=== PATIENT | female | born 1930 | race Caucasian/White ===

== ENCOUNTER → 2018-11-13 | Outpatient (CLI) | payer OTHER ==
[~2018-11-13] MED LIST: GADOBUTROL 10 ML VIAL IVP ONE
== END ==
LOC: FIMAGING 09:16
PROVIDERS: ATTEND Internal Medicine Hematology & Oncology
DX: C34.82 Malignant neoplasm of overlapping sites of left bronchus and lung (principal); C78.2 Secondary malignant neoplasm of pleura; R90.82 White matter disease, unspecified; G31.9 Degenerative disease of nervous system, unspecified
CPT/HCPCS: 70553; A9585; 84481-90

== ENCOUNTER 2018-12-01 09:51 | Day surgery (SDC) | payer OTHER ==
[2018-12-01] MEDS ORDERED: ALTEPLASE 2 MG VIAL IVP PRN (10:18)
[2018-12-01] MEDS ORDERED: MIDAZOLAM 2 MG/2 ML VIAL IVP PRN (10:18)
[2018-12-01] MEDS ORDERED: PROTAMINE SULFATE 50 MG/5 ML VIAL IVP PRN (10:18)
[2018-12-01] MEDS ORDERED: GLUCAGON HCL 1 MG VIAL IVP PRN (10:18)
[2018-12-01] MEDS ORDERED: fentaNYL 100 MCG/2 ML INJ IVP PRN (10:18)
[2018-12-01] MEDS ORDERED: MEPERIDINE 25 MG/ML INJ IVP PRN (10:18)
[2018-12-01] MEDS ORDERED: HEPARIN 10,000 UNIT/10 ML MDV (1,000 UNIT/ML) IVP PRN (10:18)
[2018-12-01] MEDS ORDERED: NALOXONE HCL 0.4 MG/ML INJ IVP PRN (10:18)
[2018-12-01] MEDS ORDERED: FLUMAZENIL 0.5 MG/5 ML MDV IVP PRN (10:18)
[2018-12-01] MEDS ORDERED: ceFAZolin 2 GM/DEXTROSE 100 ML IV ONE (10:18)
[2018-12-01] MEDS ORDERED: NS 1,000 ML IV SCH (10:30)
[2018-12-01] MEDS ORDERED: LIDOCAINE 1% 5 ML SDV ONE (10:42)
--- NOTE | 2018-12-01 11:13 | PDPROPOC ---
Sedation Plan of Care Sedation Plan of Care: vital signs stable, mental status noted, patient educated of risks, benefits, alternatives, patient can tolerate sedation ASA Classification: ASA 3 Planned drugs: fentanyl, midazolam Mallampati Score: Class 2 Mallampati Reference Image: Patient passed 3-3-2 rule?: Yes
--- NOTE | 2018-12-01 11:13 | PDGENHP ---
History & Physical Chief Complaint: LT PLEURAL EFFUSION History of Present Illness: NON-SMALL CELL LUNG CANCER. RECURRENT LT PLEURAL EFFUSION. Pertinent Past, Social, Family History: NON SMOKER. TAPPED 1L PER WEEK X 3. VERY SUPPORTIVE LARGE FAMILY. Relevant Physical Exam: TIRED A LOT. Cardiorespiratory Assessment: MUCOUSY COUGH. DECREASED LT LUNG SOUNDS.
[2018-12-01 11:25] LABS: INR 0.94 (0.83-1.16); PROTIME(PATIENT) 12.2 SEC (12.0-15.0)
[2018-12-01] MEDS ORDERED: ONDANSETRON 4 MG/2 ML VIAL IVP PRN (12:20)
[2018-12-01] MEDS ORDERED: ACETAMINOPHEN 325 MG TAB PO PRN (12:20)
--- NOTE | 2018-12-01 12:21 | PDRADPN ---
Radiology Procedure Note Date of Procedure: 12/01/18 Radiologist: Charlotte Cespedes Anesthesia: IV Sedation Pre-op Diagnosis: non small cell lung cancer Post-op Diagnosis: same Indication: recurrent effusion Procedure: pleurx drain placement Finding(s): 1200cc removed Inf/Abcess present in the surg proc area at time of surgery?: No
[2018-12-01 13:03] VITALS: BP 142/76
== END 2018-12-01 13:20 | disposition home or self-care (01) ==
LOC: FIMAGING 09:51
PROVIDERS: ATTEND Radiology Diagnostic Radiology
PROC: BB13ZZZ Fluoroscopy of Left Lung (ICD-10-PCS; principal; 2018-12-01 12:32)
PROC: BB4BZZZ Ultrasonography of Pleura (ICD-10-PCS; principal; 2018-12-01 12:32)
PROC: 0W9B30Z Drainage of Left Pleural Cavity with Drainage Device, Percutaneous Approach (ICD-10-PCS; principal; 2018-12-01 12:32)
DX: C34.82 Malignant neoplasm of overlapping sites of left bronchus and lung (principal); C78.2 Secondary malignant neoplasm of pleura; J91.0 Malignant pleural effusion; E03.9 Hypothyroidism, unspecified
CPT/HCPCS: 32550; 76999; 99152; C1729; C2617; J0690; J2250; J3010